=== PATIENT | male | born 1935 | race African-American/Black ===

== ENCOUNTER 2018-04-12 10:44 | Day surgery (SDC) | payer MEDICARE, OTHER ==
[~2018-04-12] VITALS: Ht 188 cm; Wt 88.8 kg
[2018-04-12] VITALS (8 sets, daily range): BP systolic 132–186; BP diastolic 58–88; PULSE 48–91; TEMP 97.8–98.3
[~2018-04-12 10:44] MED LIST: ALLERGY RELIEF25 MG; GLUCOPHAGE1000 MG PO; INDERAL40 MG PO; IRON65 M1 PO; MICARDIS40 MG PO; MOBIC15 MG PO; ONE DAILY1 TA1 PO; OSTEO-BI-FLEX 21 TAB PO; ZOCOR 40MG40 MG PO
[2018-04-12] MEDS ORDERED: LIPITOR 40MG TA40 MG PO (11:42)
[2018-04-12] MEDS ORDERED: RAPAFLO8 MG PO (11:44)
[2018-04-12] MEDS ORDERED: PLAVIX 75MG TAB75 MG PO (11:45)
[2018-04-12] MEDS ORDERED: CATAPRES-TTS 10.1 M1 TD (11:45)
[2018-04-12] MEDS ORDERED: PERCOCET 325 MG1 TA2 PO (11:46)
[2018-04-13 00:01] VITALS: BP 160/87; PULSE 66; TEMP 98.2
[2018-04-13 03:20] VITALS: BP 139/63; PULSE 55; TEMP 98.3
[2018-04-13 06:40] LABS: BASO % 0.3 % (0.0-2.0); EOS % 0.5 % (0-4.0); GRAN # 4.6 (1.4-6.5); GRAN % 71.8 % (42.2-75.2); HEMOGLOBIN 12.7 g/dl (13.5-18.0); LYMPH # 1.1 (1.2-3.4); MEAN CELL VOLUME 92 fl (80.0-100.0); MEAN CORPUSCULAR HEMOGLOBIN 32 pg (27.0-31.0); MEAN CORPUSCULAR HGB CONC 35 g/dl (33.0-37.0); MEAN PLATELET VOLUME 11.2 fl (7.4-10.4); MONO # 0.6 (0.1-0.6); MONO % 10.1 % (1.7-9.3); PLATELET COUNT 163 K/mm3 (130-400); RED BLOOD COUNT 3.99 M/mm3 (4.20-5.60); REDCELL DISTRIBUTION WIDTH-CV 13.2 % (11.5-14.5)
[2018-04-13 06:50] LABS: HEMATOCRIT 36.7 % (42.0-52.0)
[2018-04-13 07:47] VITALS: BP 146/84; PULSE 58; TEMP 98.2
== END 2018-04-13 11:52 | disposition home or self-care (01) ==
LOC: SDCO 10:44 → SURG 15:58 → SDCO 04-13 11:52
PROVIDERS: Urology
DX: N40.1 Benign prostatic hyperplasia with lower urinary tract symptoms (principal); R33.9 Retention of urine, unspecified; N13.9 Obstructive and reflux uropathy, unspecified; N31.2 Flaccid neuropathic bladder, not elsewhere classified; N21.0 Calculus in bladder; R33.8 Other retention of urine; R39.12 Poor urinary stream; N41.9 Inflammatory disease of prostate, unspecified; D56.9 Thalassemia, unspecified; Z87.442 Personal history of urinary calculi; E11.9 Type 2 diabetes mellitus without complications; Z79.84 Long term (current) use of oral hypoglycemic drugs; F17.210 Nicotine dependence, cigarettes, uncomplicated; Z79.02 Long term (current) use of antithrombotics/antiplatelets; Z79.899 Other long term (current) drug therapy; I10 Essential (primary) hypertension; I47.2 Ventricular tachycardia
CPT/HCPCS: OP; J0690; J1100; J1940; J2405; J2704; J2765; J3010; J3480; J7030

== ENCOUNTER 2018-04-21 13:02 | Day surgery (SDC) | payer MEDICARE, OTHER ==
[~2018-04-21] VITALS: Ht 188 cm; Wt 88.7 kg
[~2018-04-21 13:02] MED LIST changes: +CATAPRES-TTS 10.1 M1 TD; +LIPITOR 40MG TA40 MG PO; +PERCOCET 325 MG1 TA2 PO; +PLAVIX 75MG TAB75 MG PO; +RAPAFLO8 MG PO
[2018-04-21 14:08] VITALS: BP 171/69; PULSE 55; TEMP 97.9
[2018-04-21 18:49] VITALS: BP 145/56; PULSE 59; TEMP 97.1
[2018-04-21 19:59] VITALS: BP 145/56; PULSE 59; TEMP 97.1
[2018-04-21 20:34] VITALS: BP 157/54; PULSE 55
[2018-04-21 21:00] VITALS: BP 166/70; PULSE 62
== END 2018-04-21 21:05 | disposition home or self-care (01) ==
LOC: SDCO 13:02 → MEDICAL 18:50 → SDCO 21:05
DX: N20.1 Calculus of ureter (principal); N21.0 Calculus in bladder; E11.9 Type 2 diabetes mellitus without complications; E78.5 Hyperlipidemia, unspecified; I10 Essential (primary) hypertension; I47.1 Supraventricular tachycardia; N40.1 Benign prostatic hyperplasia with lower urinary tract symptoms; R33.8 Other retention of urine; R39.12 Poor urinary stream; F17.210 Nicotine dependence, cigarettes, uncomplicated; M19.90 Unspecified osteoarthritis, unspecified site; D64.9 Anemia, unspecified; Z90.49 Acquired absence of other specified parts of digestive tract; Z79.02 Long term (current) use of antithrombotics/antiplatelets; Z79.84 Long term (current) use of oral hypoglycemic drugs; Z85.46 Personal history of malignant neoplasm of prostate; Z82.49 Family history of ischemic heart disease and other diseases of the circulatory system
CPT/HCPCS: OP; C1769; C2617; J0690; J2405; J2704; J2765; J3010; J7030; Q9967

== ENCOUNTER 2019-06-04 12:37 | Inpatient (IN) | payer MEDICARE, OTHER ==
[2019-06-04] VITALS (259 sets, daily range): BP systolic 98–117; BP diastolic 53–77; PULSE 57–79; TEMP 97.2–99; O2SAT 61–100
[~2019-06-04] VITALS: Ht 185.4 cm; Wt 85.0 kg
[~2019-06-04 12:37] MED LIST changes: -MICARDIS40 MG PO; +MICARDIS80 MG PO
[2019-06-04] MEDS ORDERED: ASPIRIN 81M81 MG/TA2 PO (13:15)
[2019-06-04] MEDS ORDERED: LASIX 40MG TABL40 MG PO (13:15)
[2019-06-04] MEDS ORDERED: TOPROL XL 25MG25 MG PO (13:16)
[2019-06-04] MEDS ORDERED: FLOMAX 0.40.4 MG/CAP PO (13:16)
[2019-06-04] MEDS ORDERED: NITROSTAT0.4 MG/TAB SL (13:19)
[2019-06-04] MEDS ORDERED: MULTI VITAMINS1 TAB PO (13:21)
[2019-06-04] MEDS ORDERED: LEVAQUIN 2250 MG/TAB PO (13:22)
[2019-06-04 18:50] LABS: BASO % 0.2 % (0.0-2.0); EOS % 0.2 % (0-4.0); GRAN # 4.6 (1.4-6.5); HEMOGLOBIN 10.2 g/dl (13.5-18.0); LYMPH # 0.3 (1.2-3.4); LYMPH % 5.1 % (20.0-51.0); MEAN CELL VOLUME 95 fl (80.0-100.0); MEAN CORPUSCULAR HEMOGLOBIN 31 pg (27.0-31.0); MEAN CORPUSCULAR HGB CONC 33 g/dl (33.0-37.0); MEAN PLATELET VOLUME 11.7 fl (7.4-10.4); MONO # 0.3 (0.1-0.6); MONO % 4.9 % (1.7-9.3); PLATELET COUNT 120 K/mm3 (130-400); RED BLOOD COUNT 3.29 M/mm3 (4.20-5.60); REDCELL DISTRIBUTION WIDTH-CV 13.8 % (11.5-14.5)
[2019-06-04 18:51] LABS: HEMATOCRIT 31.4 % (42.0-52.0)
[2019-06-04 19:01] LABS: ALBUMIN 3.4 gm/dL (3.5-5.0); BILIRUBIN,TOTAL 0.6 mg/dL (0.0-1.0); CALCIUM 8.5 mg/dL (8.4-10.2); CREATININE, serum 1.19 (0.66-1.25); MAGNESIUM 2.1 mg/dL (1.6-2.3); POTASSIUM 3.9 mmol/L (3.4-5.0); TOTAL PROTEIN 6.5 gm/dL (6.4-8.2)
[2019-06-04 20:46] LABS: TROPONIN-I 0.037 ng/mL (0.000-0.035)
[2019-06-05] VITALS (355 sets, daily range): BP systolic 105–132; BP diastolic 51–71; PULSE 43–57; TEMP 97–98.2; O2SAT 69–100
[2019-06-05 05:43] LABS: BASO % 0.2 % (0.0-2.0); GRAN # 3.6 (1.4-6.5); GRAN % 85.8 % (42.2-75.2); LYMPH # 0.3 (1.2-3.4); LYMPH % 6.9 % (20.0-51.0); MEAN CELL VOLUME 95 fl (80.0-100.0); MEAN CORPUSCULAR HGB CONC 32 g/dl (33.0-37.0); MEAN PLATELET VOLUME 12.1 fl (7.4-10.4); MONO # 0.3 (0.1-0.6); MONO % 6.4 % (1.7-9.3); PLATELET COUNT 126 K/mm3 (130-400); RED BLOOD COUNT 3.07 M/mm3 (4.20-5.60); REDCELL DISTRIBUTION WIDTH-CV 13.8 % (11.5-14.5)
[2019-06-05 05:44] LABS: HEMATOCRIT 29.3 % (42.0-52.0); HEMOGLOBIN 9.5 g/dl (13.5-18.0); MEAN CORPUSCULAR HEMOGLOBIN 31 pg (27.0-31.0)
[2019-06-05 06:00] LABS: CALCIUM 8.3 mg/dL (8.4-10.2); CREATININE, serum 1.07 (0.66-1.25); POTASSIUM 4.3 mmol/L (3.4-5.0)
[2019-06-05 06:08] LABS: TROPONIN-I 0.02 ng/mL (0.000-0.035)
[2019-06-06] VITALS (14 sets, daily range): BP systolic 109–137; BP diastolic 42–69; PULSE 36–80; TEMP 97.6–98.4
[2019-06-06 07:12] LABS: BASO % 0.2 % (0.0-2.0); EOS # 0.1 (0.0-0.7); GRAN # 3.8 (1.4-6.5); GRAN % 73.9 % (42.2-75.2); LYMPH # 0.7 (1.2-3.4); LYMPH % 12.6 % (20.0-51.0); MEAN CELL VOLUME 96 fl (80.0-100.0); MEAN CORPUSCULAR HGB CONC 33 g/dl (33.0-37.0); MEAN PLATELET VOLUME 11.9 fl (7.4-10.4); MONO # 0.6 (0.1-0.6); MONO % 11.5 % (1.7-9.3); PLATELET COUNT 152 K/mm3 (130-400); RED BLOOD COUNT 3.08 M/mm3 (4.20-5.60); REDCELL DISTRIBUTION WIDTH-CV 13.7 % (11.5-14.5)
[2019-06-06 07:13] LABS: HEMATOCRIT 29.4 % (42.0-52.0); HEMOGLOBIN 9.7 g/dl (13.5-18.0); MEAN CORPUSCULAR HEMOGLOBIN 31 pg (27.0-31.0)
[2019-06-06 07:25] LABS: CALCIUM 8.7 mg/dL (8.4-10.2); CREATININE, serum 0.99 (0.66-1.25); POTASSIUM 3.9 mmol/L (3.4-5.0)
[2019-06-07 04:00] VITALS: BP 148/51; PULSE 42; TEMP 97.7
[2019-06-07 07:39] VITALS: BP 141/66; PULSE 49; TEMP 98.2
[2019-06-07 08:59] LABS: GRAN # 3.7 (1.4-6.5); GRAN % 73.9 % (42.2-75.2); HEMOGLOBIN 10.4 g/dl (13.5-18.0); LYMPH # 0.7 (1.2-3.4); MEAN CELL VOLUME 94 fl (80.0-100.0); MEAN CORPUSCULAR HEMOGLOBIN 32 pg (27.0-31.0); MEAN CORPUSCULAR HGB CONC 34 g/dl (33.0-37.0); MEAN PLATELET VOLUME 11.1 fl (7.4-10.4); MONO # 0.6 (0.1-0.6); MONO % 12.3 % (1.7-9.3); PLATELET COUNT 148 K/mm3 (130-400); REDCELL DISTRIBUTION WIDTH-CV 13.7 % (11.5-14.5)
[2019-06-07 09:13] LABS: CALCIUM 8.8 mg/dL (8.4-10.2); CREATININE, serum 0.96 (0.66-1.25); POTASSIUM 4.1 mmol/L (3.4-5.0)
[2019-06-07] MEDS ORDERED: MICARDIS20 MG PO (10:08)
[2019-06-07 11:49] VITALS: BP 116/47; PULSE 46; TEMP 97.8
== END 2019-06-07 13:08 | disposition home or self-care (01) | DRG 660 ==
LOC: SDCO 12:37 → ICU 18:04 → SDCO 06-05 01:11 → ICU 06-05 01:12 → SURG 06-05 01:12
PROVIDERS: Nurse Practitioner Family; Physician Assistant; ADMIT Urology
PROC: BT1FYZZ Fluoroscopy of Left Kidney, Ureter and Bladder using Other Contrast (ICD-10-PCS; 2019-06-04)
PROC: 0TJB8ZZ Inspection of Bladder, Via Natural or Artificial Opening Endoscopic (ICD-10-PCS; principal; 2019-06-04 14:30)
PROC: 0T778DZ Dilation of Left Ureter with Intraluminal Device, Via Natural or Artificial Opening Endoscopic (ICD-10-PCS; 2019-06-06 17:30)
PROC: 0TC78ZZ Extirpation of Matter from Left Ureter, Via Natural or Artificial Opening Endoscopic (ICD-10-PCS; 2019-06-06 17:30)
DX: N13.6 Pyonephrosis (principal); E87.2 Acidosis; I47.1 Supraventricular tachycardia; N17.9 Acute kidney failure, unspecified; E78.5 Hyperlipidemia, unspecified; I10 Essential (primary) hypertension; I25.10 Atherosclerotic heart disease of native coronary artery without angina pectoris; D56.9 Thalassemia, unspecified; N40.0 Benign prostatic hyperplasia without lower urinary tract symptoms; R00.1 Bradycardia, unspecified; Z85.46 Personal history of malignant neoplasm of prostate; Z87.891 Personal history of nicotine dependence; Z79.84 Long term (current) use of oral hypoglycemic drugs
CPT/HCPCS: OP; 99222; 99231-AI; 99232-AI; C1729; C1769; C2617; G0378; G0379; J0690; J1100; J1815; J2405; J2704; J3010; J7030; Q9967

== ENCOUNTER 2019-06-12 15:40 | Inpatient (IN) | payer MEDICARE, OTHER ==
[~2019-06-12] VITALS: Ht 185.4 cm; Wt 195.0 kg
[~2019-06-12 15:40] MED LIST changes: +ASPIRIN 81M81 MG/TA2 PO; +FLOMAX 0.40.4 MG/CAP PO; +LASIX 40MG TABL40 MG PO; +LEVAQUIN 2250 MG/TAB PO; +MICARDIS20 MG PO; +MULTI VITAMINS1 TAB PO; +NITROSTAT0.4 MG/TAB SL; +TOPROL XL 25MG25 MG PO
--- NOTE | 2019-06-12 17:30 | NUR ---
arrived per stretcher via EMS from [facility], assisted over and into bed, MANAGER COLLECTION in and blood sugar obtained, blood sugar is 51
[2019-06-12 17:32] VITALS: BP 129/61; PULSE 63; TEMP 98.3
--- NOTE | 2019-06-12 17:40 | NUR ---
Dr Shah notified of patinet's admission and blood sugar, order received for IV fluids and D5NS started
--- NOTE | 2019-06-12 17:52 | NUR ---
Dr Miller here and notified of consult and in to see patient
[2019-06-12 18:33] LABS: COLLECTION METHOD CATHETER
[2019-06-12 18:56] LABS: BUDDING YEAST Present /hpf; MUCOUS Present /lpf; PH 5 (5-8); SQUAMOUS EPITHELIAL 0-2 /hpf; URINE APPEARANCE Cloudy; URINE BACTERIA Moderate /hpf; URINE BILIRUBIN Negative (NEGATIVE); URINE BLOOD 3+ (NEGATIVE); URINE CALCIUM OXALATE CRYSTAL Present /hpf; URINE COLOR Amber; URINE GLUCOSE Negative (NEGATIVE); URINE KETONE Negative (NEGATIVE); URINE LEUKOCYTE ESTERASE 1+ (NEGATIVE); URINE NITRATE Negative (NEGATIVE); URINE PROTEIN(semi-quant) 2+ (NEGATIVE); URINE RBC >50 /hpf; URINE UROBILINOGEN Negative (NEGATIVE)
--- NOTE | 2019-06-12 19:01 | NUR ---
bedside shift report given to RUTH ANN Hurd
[2019-06-12 19:20] LABS: BASO % 0.1 % (0.0-2.0); EOS % 0.5 % (0-4.0); GRAN # 6.9 (1.4-6.5); GRAN % 82.9 % (42.2-75.2); LYMPH # 0.7 (1.2-3.4); LYMPH % 8.5 % (20.0-51.0); MEAN CELL VOLUME 96 fl (80.0-100.0); MEAN CORPUSCULAR HGB CONC 32 g/dl (33.0-37.0); MEAN PLATELET VOLUME 10.3 fl (7.4-10.4); MONO # 0.6 (0.1-0.6); MONO % 7.2 % (1.7-9.3); PLATELET COUNT 265 K/mm3 (130-400); RED BLOOD COUNT 3.17 M/mm3 (4.20-5.60); REDCELL DISTRIBUTION WIDTH-CV 14.2 % (11.5-14.5)
[2019-06-12 19:21] LABS: HEMATOCRIT 30.3 % (42.0-52.0); HEMOGLOBIN 9.8 g/dl (13.5-18.0); MEAN CORPUSCULAR HEMOGLOBIN 31 pg (27.0-31.0)
--- NOTE | 2019-06-12 19:25 | NUR ---
attempted to complete medication reconcilliation, he is unsure of his medicine and his has a list, I reported this to RUTH ANN Hurd
[2019-06-12 19:27] LABS: ALBUMIN 3.9 gm/dL (3.5-5.0); BILIRUBIN,TOTAL 0.6 mg/dL (0.0-1.0); CALCIUM 9.3 mg/dL (8.4-10.2); MAGNESIUM 2.3 mg/dL (1.6-2.3); PHOSPHOROUS 5.1 mg/dL (2.5-4.5); POTASSIUM 5.1 mmol/L (3.4-5.0); TOTAL PROTEIN 6.9 gm/dL (6.4-8.2)
[2019-06-12 19:30] LABS: CREATININE, serum 6.57 (0.66-1.25)
[2019-06-12] MEDS ORDERED: MICARDIS40 MG PO (19:37)
--- NOTE | 2019-06-12 19:38 | NUR ---
spoke with and med dean completed
[2019-06-12 19:39] VITALS: BP 122/49; PULSE 82; TEMP 97.5
--- NOTE | 2019-06-12 22:38 | NUR ---
Pt doing ok. Resting in room. IV bolus running with IV to right hand. Denies pain at this time. BS have come up some. Has not had BM this shift. Denies needs at this time. Call light within reach, will continue to monitor
[2019-06-12 23:26] VITALS: BP 119/48; PULSE 71; TEMP 97.8
[2019-06-13 04:00] VITALS: BP 114/51; PULSE 60; TEMP 98.1
--- NOTE | 2019-06-13 05:03 | NUR ---
Pt doing ok. Resting in bed. Denies pain, n/v at this time. Did have small BM around 0300. Brown, soft formed. No other concerns at this time. Call light within reach, will continue to monitor
[2019-06-13 07:14] VITALS: BP 124/71; PULSE 49; TEMP 97.7
--- NOTE | 2019-06-13 08:00 | NUR ---
SEE MORNING ASSESSMENT.
--- NOTE | 2019-06-13 08:00 | NUR ---
contacted to obtain lab sample. Attempted twice in left arm. Number 24 butterfly left forearm with no blood return. Butterfly needle used and accessed left hand vein without difficulty lab drawn. Butterfly needle removed. Both sites were cleansed with alcohol prior to each attempt.
[2019-06-13 08:20] LABS: EOS # 0.1 (0.0-0.7); EOS % 1.2 % (0-4.0); GRAN # 5.2 (1.4-6.5); GRAN % 80.6 % (42.2-75.2); LYMPH # 0.6 (1.2-3.4); LYMPH % 9.8 % (20.0-51.0); MEAN CELL VOLUME 95 fl (80.0-100.0); MEAN CORPUSCULAR HGB CONC 33 g/dl (33.0-37.0); MEAN PLATELET VOLUME 9.8 fl (7.4-10.4); MONO # 0.5 (0.1-0.6); MONO % 7.5 % (1.7-9.3); PLATELET COUNT 231 K/mm3 (130-400); REDCELL DISTRIBUTION WIDTH-CV 14.4 % (11.5-14.5)
[2019-06-13 08:21] LABS: HEMATOCRIT 26.7 % (42.0-52.0); HEMOGLOBIN 8.8 g/dl (13.5-18.0); MEAN CORPUSCULAR HEMOGLOBIN 31 pg (27.0-31.0)
[2019-06-13 08:31] LABS: CALCIUM 8.3 mg/dL (8.4-10.2); POTASSIUM 4.9 mmol/L (3.4-5.0)
[2019-06-13 08:36] LABS: CREATININE, serum 5.53 (0.66-1.25)
--- NOTE | 2019-06-13 10:49 | NUR ---
Follow-up visit; Patient thanked Nozzle Worker for checking on him. Raul states he isn't doing well but is being well cared for by nurses. Nozzle Worker wished him well and offered God's blessings.
[2019-06-13 11:42] VITALS: BP 132/49; PULSE 63; TEMP 98.4
--- NOTE | 2019-06-13 16:12 | NUR ---
Market Manager met with patient and patient's Genna (ph#[phone]) to discuss discharge planning. Patient lives with his in [place] and is mostly independent with ADLS however, patient's does provide some assistance. Patient reports his assists him with bathing. Patient receives primary care from Dr. Andre Barnes in [place] and obtains medications from [place] with no issue. Patient has a cane that he utilizes regularly. Patient's reports Advance Directives have been completed but are at home in a safe. Patient was recently hospitalized on 06/04/19 and was discharged on 06/07/19. Patient's reports they returned to the ER as patient was unable to urinate. SW discussed PT's evaluation in regards to outpatient PT or possibly Home Health. Patient declines HH and reports he has no trouble getting out of his house to his truck, which he enjoys driving around in. Patient was open to outpatient PT. Patient does not have concerns at this time about returning home upon discharge. SW to continue to follow as needed.
[2019-06-13 16:13] VITALS: BP 145/61; PULSE 60; TEMP 97.9
--- NOTE | 2019-06-13 16:23 | NUR ---
PATIENT STATES THAT HIS BUTT HURTS. COCCYX REDDENED. BARRIER CREAM APPLIED. WILL CONTINUE TO MONITOR.
--- NOTE | 2019-06-13 19:12 | NUR ---
REPORT GIVEN TO RUTH ANN WALDROP.
[2019-06-13 20:50] VITALS: BP 131/59; PULSE 60; TEMP 98.6
--- NOTE | 2019-06-13 21:52 | NUR ---
Pt doing well. Resting in bed with fluids running. Denies SOB, chest pain, n/v. Has no other complaints. Call light within reach, will continue to monitor
[2019-06-13 23:09] VITALS: BP 154/62; PULSE 71; TEMP 97.8
[2019-06-14 04:00] VITALS: BP 143/53; PULSE 65; TEMP 97.6
--- NOTE | 2019-06-14 05:32 | NUR ---
Patient refused AM labs this morning. Not able to obtain fractionated sodium
--- NOTE | 2019-06-14 06:55 | NUR ---
awake up in chair watching TV, bedside shift report received from RUTH ANN Catalan
[2019-06-14 07:32] VITALS: BP 140/73; PULSE 53; TEMP 97.4
--- NOTE | 2019-06-14 08:00 | NUR ---
remains up in chair, stated he didn't want any breakfast that he wasn't hungry, asking when the Dr is coming in because he wants to go home, informed him it would be after 0830 at the earliest, full assessment completed, see interventions for further info, abrbour cath patent draining clear christopher urine
--- NOTE | 2019-06-14 09:38 | NUR ---
Dr Shah and care team in to see patient, has agreed now to have lab work done, barbour catheter clamped in order to obtain urine specimen
--- NOTE | 2019-06-14 10:09 | NUR ---
lab in and blood drawn by this nurse and urine for FENA,
--- NOTE | 2019-06-14 10:10 | NUR ---
Resaw Operator attended clinical rounds with the team where treatment and discharge goals were reviewed. SW to continue to follow as needed.
[2019-06-14 10:19] LABS: BASO % 0.2 % (0.0-2.0); EOS # 0.2 (0.0-0.7); EOS % 2.4 % (0-4.0); GRAN # 4.7 (1.4-6.5); GRAN % 75.4 % (42.2-75.2); LYMPH # 0.7 (1.2-3.4); LYMPH % 11.6 % (20.0-51.0); MEAN CELL VOLUME 95 fl (80.0-100.0); MEAN CORPUSCULAR HGB CONC 33 g/dl (33.0-37.0); MONO # 0.6 (0.1-0.6); MONO % 9.3 % (1.7-9.3); PLATELET COUNT 242 K/mm3 (130-400); RED BLOOD COUNT 3.04 M/mm3 (4.20-5.60); REDCELL DISTRIBUTION WIDTH-CV 14.3 % (11.5-14.5)
[2019-06-14 10:20] LABS: HEMATOCRIT 28.9 % (42.0-52.0); HEMOGLOBIN 9.6 g/dl (13.5-18.0); MEAN CORPUSCULAR HEMOGLOBIN 32 pg (27.0-31.0)
[2019-06-14 10:38] LABS: ALBUMIN 3.3 gm/dL (3.5-5.0); BILIRUBIN,TOTAL 0.6 mg/dL (0.0-1.0); CALCIUM 8.5 mg/dL (8.4-10.2); CREATININE, serum 3.37 (0.66-1.25); MAGNESIUM 1.9 mg/dL (1.6-2.3); POTASSIUM 4.5 mmol/L (3.4-5.0); TOTAL PROTEIN 6.1 gm/dL (6.4-8.2)
[2019-06-14 10:41] LABS: CREATININE, serum 3.37 (0.66-1.25); FRACTIONAL EXCRETION OF NA+ 4.8 %
[2019-06-14 11:14] VITALS: BP 165/55; PULSE 55; TEMP 97.3
--- NOTE | 2019-06-14 12:18 | NUR ---
sitting up in chair eating lunch, informed him the lab results were back and the Dr was informed
--- NOTE | 2019-06-14 15:18 | NUR ---
Dr Shah in to see patietn and will plan discharge
[2019-06-14] MEDS ORDERED: DIFLUCAN50 MG PO (15:23)
[2019-06-14] MEDS ORDERED: OMNICEF 300MG300 MG PO (15:24)
[2019-06-14] MEDS ORDERED: NICODERM C21 MG/PATC TD (15:26)
[2019-06-14] MEDS ORDERED: NORVASC 5MG5 MG/TAB PO (15:26)
--- NOTE | 2019-06-14 16:50 | NUR ---
discharge instructions given to patient and his and this included how to change the catheter bag to a leg bag and back, verbalizes understanding and his states they have done this before,
--- NOTE | 2019-06-14 17:00 | NUR ---
discharged per WC
== END 2019-06-14 17:00 | disposition home or self-care (01) | DRG 683 ==
LOC: MEDICAL 15:40 → SURG 17:35
PROVIDERS: Nurse Practitioner Family; Physician Assistant; ADMIT Internal Medicine
DX: N17.9 Acute kidney failure, unspecified (principal); N39.0 Urinary tract infection, site not specified; G93.49 Other encephalopathy; I13.0 Hypertensive heart and chronic kidney disease with heart failure and stage 1 through stage 4 chronic kidney disease, or unspecified chronic kidney disease; E78.5 Hyperlipidemia, unspecified; I25.10 Atherosclerotic heart disease of native coronary artery without angina pectoris; K57.30 Diverticulosis of large intestine without perforation or abscess without bleeding; F17.210 Nicotine dependence, cigarettes, uncomplicated; I50.9 Heart failure, unspecified; R33.8 Other retention of urine; D56.9 Thalassemia, unspecified; N40.1 Benign prostatic hyperplasia with lower urinary tract symptoms; N18.3 Chronic kidney disease, stage 3 (moderate); E11.22 Type 2 diabetes mellitus with diabetic chronic kidney disease; Z85.46 Personal history of malignant neoplasm of prostate; Z90.49 Acquired absence of other specified parts of digestive tract; Z79.82 Long term (current) use of aspirin; Z79.02 Long term (current) use of antithrombotics/antiplatelets; Z79.84 Long term (current) use of oral hypoglycemic drugs
CPT/HCPCS: 99223-AI; 99239; A4216; J0696; J1644; J7030; J7042

== ENCOUNTER 2020-01-25 07:16 | Day surgery (SDC) | payer MEDICARE, OTHER ==
[2020-01-25] VITALS (8 sets, daily range): BP systolic 133–160; BP diastolic 50–66; PULSE 46–89; TEMP 98–98.1
[~2020-01-25] VITALS: Ht 185.4 cm; Wt 92.2 kg
[~2020-01-25 07:16] MED LIST changes: +DIFLUCAN50 MG PO; +MICARDIS40 MG PO; +NICODERM C21 MG/PATC TD; +NORVASC 5MG5 MG/TAB PO; +OMNICEF 300MG300 MG PO
[2020-01-25] MEDS ORDERED: BACTRIM DS 8001 TAB PO (08:31)
--- NOTE | 2020-01-25 09:00 | NUR ---
Resting on cart and awaits surgery. Spouse in room.
[2020-01-25] MEDS ORDERED: NITROSTAT0.4 MG/TAB SL (09:03)
[2020-01-25 09:36] LABS: CALCIUM 9.4 mg/dL (8.4-10.2); CREATININE, serum 1.38 (0.66-1.25); POTASSIUM 4.6 mmol/L (3.4-5.0)
--- NOTE | 2020-01-25 10:00 | NUR ---
Continues to await surgery. Warm blankets on.
--- NOTE | 2020-01-25 11:30 | NUR ---
Informed that the surgery will be delayed and continues to wait. Warm blankets on.
--- NOTE | 2020-01-25 12:00 | NUR ---
Continues to await surgery. Was informed that surgery has been delayed until approximately 1530. Spouse in room.
--- NOTE | 2020-01-25 13:15 | NUR ---
Patient transferred from cart to hospital bed for comfort. Patient transferred to PACU isolation bay and report given to Vannessa VALLECILLO. Spouse with patient and all belongings transferred with patient.
--- NOTE | 2020-01-25 18:20 | NUR ---
Patient to room 343 by bed from the PACU, at the bedside. Patient is alert, but drowsy and falls back to sleep. Is easily aroused. VSS 2L NC O2. IV CDI, fluids infusing. CBI infusing, pink urine output. Post op VS being monitored. Fall precautions in place. Call light within reach. Bed alarm on. Will continue to monitor
[2020-01-26 03:45] VITALS: BP 150/57; PULSE 49; TEMP 97.6
--- NOTE | 2020-01-26 04:17 | NUR ---
Patient noted to be confused about where he as at the beginning of the shift. Patient educated about his surgery and that he was in the hospital, patient able to be reoriented. Oxygen saturations noted to be low and 2L NC was reapplied. Patient educated to leave oxygen on. CBI running slowly and urine is light pink in color. Denies pain. Medications given per orders. Patient tolerating PO water fine and has not requested any other clear liquids. IV to right hand. SCDs on. Will conitnue to monitor patient.
[2020-01-26 08:45] VITALS: BP 155/65; PULSE 51; TEMP 97.7
[2020-01-26 12:11] VITALS: BP 132/59; PULSE 50; TEMP 97.9
--- NOTE | 2020-01-26 13:49 | NUR ---
Photoengraving Proofer Apprentice visited with patient and nothing else needed.
[2020-01-26 16:46] VITALS: BP 153/65; PULSE 51; TEMP 98.1
--- NOTE | 2020-01-26 18:00 | NUR ---
Patient has been doing well today. No complaints of pain or nausea. His came earlier and stated that patient is diabetic. We checked his blood glucose before supper, it was 70. Clamped patients CBI this morning, his urine has a few old clots but no bright red blood. Patient is hoping to discharge tomorrow. No other changes at this time. Call light within reach.
--- NOTE | 2020-01-26 20:00 | NUR ---
Received report from RUTH ANN Morris. Pt currently lying in bed and watching television at this time. Pt has his call light within reach at this time.
[2020-01-26 20:14] VITALS: BP 123/56; PULSE 58; TEMP 98.4
[2020-01-26 22:53] VITALS: BP 161/63; PULSE 54; TEMP 98
--- NOTE | 2020-01-26 23:00 | NUR ---
Pt currently sitting up in bed. Pt lungs sounds were clear and heart sounds were normal S1 and S2 sounds. Pt CBI is currently clamped. Pt stated that his has no pain at this time. Cath care was provided at this time and ointment was applied at this time. Pt has his call light within reach and his bed is lowest position.
--- NOTE | 2020-01-27 00:30 | NUR ---
Pt currentlty sleeping in bed. Pt did wake up when asked how he was doing. pt has his call light within reach and his bed is in lowest position.
[2020-01-27 04:04] VITALS: BP 151/63; PULSE 55; TEMP 98.6
--- NOTE | 2020-01-27 06:35 | NUR ---
PT CBI was discontinued this moring. Pt balloon was intact with 30cc from balloon. Pt tolerated well. Pt was cleaned up and bottom linens were changed. Pt was educated on the 6 cup routine and has a urinal at his bedside in case he doesn't make it to the bathroom. Pt cups are labled and on the shelf in the bathroom. He has his call light within reach and his bed is in lowest position.
--- NOTE | 2020-01-27 07:00 | NUR ---
Reported off to RUTH ANN Morris. Pt is currently sitting up in bed and has his call light within reach.
[2020-01-27 08:08] VITALS: BP 151/67; PULSE 97; TEMP 98.3
--- NOTE | 2020-01-27 11:45 | NUR ---
Patient has been voiding without issues. Denies pain or burning with urination. Patient is discharging home. Dr Rowe seen patient and said he could go. Discharge instructions discussed with patient. INT discontinued. Copies of discharge instructions givent to patient. Explained he needs to call for a follow up with Dr Rowe. Patient packed his own belongings. Patient walked out via wheel chair by Xiomara BORGES.
== END 2020-01-27 12:00 | disposition home or self-care (01) ==
LOC: SDCO 07:16 → SURG 18:32 → SDCO 01-27 12:00
PROVIDERS: Nurse Anesthetist, Certified Registered
DX: C61 Malignant neoplasm of prostate (principal); N40.1 Benign prostatic hyperplasia with lower urinary tract symptoms; N13.8 Other obstructive and reflux uropathy; R33.8 Other retention of urine; N31.2 Flaccid neuropathic bladder, not elsewhere classified; I47.2 Ventricular tachycardia; I10 Essential (primary) hypertension; E11.9 Type 2 diabetes mellitus without complications; J44.9 Chronic obstructive pulmonary disease, unspecified; E78.5 Hyperlipidemia, unspecified; I35.1 Nonrheumatic aortic (valve) insufficiency; R25.1 Tremor, unspecified; Z79.82 Long term (current) use of aspirin; Z79.899 Other long term (current) drug therapy; Z87.891 Personal history of nicotine dependence
CPT/HCPCS: OP; J0690; J2250; J2405; J2704; J3010; J3480; J7030

== ENCOUNTER 2020-02-15 07:40 | Inpatient (IN) | payer MEDICARE, OTHER ==
[2020-02-15] VITALS (15 sets, daily range): BP systolic 113–144; BP diastolic 46–80; PULSE 57–92; TEMP 73–98.7
[~2020-02-15 07:40] MED LIST changes: +BACTRIM DS 8001 TAB PO
[2020-02-15] MEDS ORDERED: XARELTO15 MG PO (09:52)
--- NOTE | 2020-02-15 10:30 | NUR ---
Pt arrived to floor at approxiamtely 0930, oriented to room. Medications confirmed with over phone. pt consented. Assisted melo in exchanging barbour to [address] and he tried to irrigate clots but was unsuccessful, pt prepped for OR immediately and taken down. Pt agreeable, alert and oriented. Transported down by Dylon,to OR. Will continue to monitor.
--- NOTE | 2020-02-15 13:44 | NUR ---
Pt returend to floor from OR at this time, resting in bed, slightly disoriented from anesthesia but resting quietly. Urine draining is clear wiht CBI at slow rate. Will continue to monitor.
[2020-02-15 14:59] LABS: EOS % 0.2 % (0-4.0); GRAN % 85.8 % (42.2-75.2); LYMPH # 0.5 (1.2-3.4); MEAN CELL VOLUME 86 fl (80.0-100.0); MEAN CORPUSCULAR HGB CONC 31 g/dl (33.0-37.0); MEAN PLATELET VOLUME 11.5 fl (7.4-10.4); MONO # 0.2 (0.1-0.6); MONO % 3.4 % (1.7-9.3); PLATELET COUNT 170 K/mm3 (130-400); RED BLOOD COUNT 2.35 M/mm3 (4.20-5.60); REDCELL DISTRIBUTION WIDTH-CV 15.9 % (11.5-14.5)
[2020-02-15 15:00] LABS: MEAN CORPUSCULAR HEMOGLOBIN 26 pg (27.0-31.0)
[2020-02-15 15:01] LABS: HEMATOCRIT 20.1 % (42.0-52.0); HEMOGLOBIN 6.2 g/dl (13.5-18.0); INR 1.7 (0.8-3.0)
[2020-02-15 15:09] LABS: CALCIUM 8.8 mg/dL (8.4-10.2); CREATININE, serum 1.49 (0.66-1.25); POTASSIUM 4.9 mmol/L (3.4-5.0)
[2020-02-15 15:57] LABS: PARTIAL THROMBOPLASTIN TIME 32.2 SECONDS (26.0-37.0)
--- NOTE | 2020-02-15 18:31 | NUR ---
Pt doing well, 1U PRBCs started, pt tolerated well, educated on s/sx of a transfusion reaction pt denies any symptoms, doing well, resting in bed. CBI at very slow rate and pt urine remains yellow and clear. PRBCs infusing to LH. Will give bedside shift report to nightshift nurse who will resume care.
--- NOTE | 2020-02-15 18:55 | NUR ---
Recevied report from RUTH ANN Dsouza. Pt currently sitting up in bed. Pt has blood infusing at this time. Pt has no complaints of pain at this time. Pt also has clear yellow urine draining in his barbour bag. Pt currently has CBI running at this time. Pt has his call light within reach and his bed is in lowest position.
--- NOTE | 2020-02-15 20:55 | NUR ---
Pt is currently lying in bed. Lab was drawn and resulted for heparin xa and the levels were 0.70. DANY Tillman was contacted at this time. She resumed the ordered for the heparin drip at this time.
--- NOTE | 2020-02-15 21:00 | NUR ---
Pt is currently lying in bed. Pt blood was done infusing at 2100. Pt vitals are within normal limits. Pt has no complaints of pain at this time. Pt has his call light within reach.
--- NOTE | 2020-02-15 22:00 | NUR ---
Pt had his H&H drawn at this time. Pt hemoglobin level was at 6.9. Vannessa SAENZ was contacted at this time. She ordered for him to have another unit of blood at this time. Pt was infomed about all of the changes and educated on what all of this meant for him. Pt CBI still has yellow clear urine draining at this time. Pt has his call light within reach and his bed is in lowest position.
[2020-02-15 22:28] LABS: HEMATOCRIT 21.8 % (42.0-52.0); HEMOGLOBIN 6.9 g/dl (13.5-18.0)
[2020-02-16] VITALS (12 sets, daily range): BP systolic 119–158; BP diastolic 46–87; PULSE 51–64; TEMP 97.5–99.2
--- NOTE | 2020-02-16 | NUR ---
Pt heparin drip was started at 2354 infusing at a rate of 16.5ml/hr. Pt had a new IV site placed @ 2140 but RUTH ANN Nuñez. Medication was verified by RUTH ANN De La Cruz. Pt has his call light within reach.
--- NOTE | 2020-02-16 01:20 | NUR ---
Pt blood was started at this time. Pt tolerated the blood very well for the first 15 minutes. Pt had no reactions. Pt is currently resting in bed. Pt has the heparin running to his right forarm. Pt has the blood infusing in his left forearm. Pt CBI is flowing clear yellow urine at this time. Pt stated he has no pain at this time. Pt vitals are all within normal limits.
--- NOTE | 2020-02-16 01:25 | NUR ---
Pt CBI is currently running. Pt urine did turn to a red tinged.The CBI was turned down at this time and the urine began to lighten up . Pt has his call light within reach and his bed is in lowest position. Will continue to monitor for bleeding.
--- NOTE | 2020-02-16 05:00 | NUR ---
Pt tolerated the blood transfusion very well. Pt has vitals were all charted at the right time. Pt still has heparin runnin at 16.5 ml/hr. Pt vitals are all within normal limits. Pt blood was finished at 0455 and has no complaints of pain at this time.
--- NOTE | 2020-02-16 06:14 | NUR ---
Pt currently lying in bed sleeping. Pt vitals are still within normal limits at this time.
--- NOTE | 2020-02-16 07:00 | NUR ---
Reported off to RUTH ANN Reyna. Pt currently sitting up in bed. Pt was asked if he wanted his breakfast tray and the pt stated that it was to early and he didn't want his breakfast right now.
--- NOTE | 2020-02-16 07:00 | NUR ---
LAB CALLED AT THIS TIME, HEP XA DUE AT 0600, NO DRAW OR RESULTS AT THIS TIME.
[2020-02-16 07:31] LABS: BASO % 0.4 % (0.0-2.0); EOS % 0.3 % (0-4.0); GRAN # 5.1 (1.4-6.5); LYMPH # 0.9 (1.2-3.4); LYMPH % 13.3 % (20.0-51.0); MEAN CELL VOLUME 86 fl (80.0-100.0); MEAN CORPUSCULAR HGB CONC 32 g/dl (33.0-37.0); MEAN PLATELET VOLUME 11.6 fl (7.4-10.4); MONO # 0.8 (0.1-0.6); MONO % 11.7 % (1.7-9.3); PLATELET COUNT 157 K/mm3 (130-400); RED BLOOD COUNT 2.65 M/mm3 (4.20-5.60); REDCELL DISTRIBUTION WIDTH-CV 15.6 % (11.5-14.5)
--- NOTE | 2020-02-16 07:34 | NUR ---
HEP XA RESULTED AT 0730. HEP XA 1.17. HEPARIN GTT STOPPED, REDRAW IN TWO HOURS
[2020-02-16 07:40] LABS: CALCIUM 8.3 mg/dL (8.4-10.2); CREATININE, serum 1.47 (0.66-1.25); POTASSIUM 4.5 mmol/L (3.4-5.0)
[2020-02-16 07:42] LABS: HEMATOCRIT 22.7 % (42.0-52.0); HEMOGLOBIN 7.3 g/dl (13.5-18.0); MEAN CORPUSCULAR HEMOGLOBIN 28 pg (27.0-31.0)
--- NOTE | 2020-02-16 11:23 | NUR ---
Patient alert and oriented, answers questions appropriately. See assessment. CBI infusing at slow rate, urine clear. Farr catheter patent. Pulses palpable BLE. Homans negative. No c/o at this time.
--- NOTE | 2020-02-16 12:18 | NUR ---
Dr Miller here to see patient.
--- NOTE | 2020-02-16 21:00 | NUR ---
PT IN BED, IS ALERT AND ORIENTED X4, ALTURAS. HAS HEPARIN GTT INFUSING AT 1200 UNITS PER HOUR OR 12CC/HR TO RIGHT FOREARM. HAS SL TO LEFT HAND FLUSHES WELL. CAVANAUGH CATH TO BSD WITH YELLOW URINE, CBI CLAMPED AT THIS TIME. HAS EDEMA TO LEFT LOWER LEG, PT REPORTS IT IS MUCH IMPROVED THAN ON ADMISSION, STILL 1+ PITTING. DENIES PAIN. TAKES NO HS MEDS. DENIES NEEDS.
[2020-02-17] VITALS (7 sets, daily range): BP systolic 131–150; BP diastolic 55–67; PULSE 56–666; TEMP 98–99.7
--- NOTE | 2020-02-17 04:26 | NUR ---
RESULTS FROM HEP XA=0.58, NO CHANGES NEEDED.
--- NOTE | 2020-02-17 05:26 | NUR ---
IVF CONNECTED AND INFUSING TO LEFT HAND WITHOUT PROBLEM. PT DENIES NEEDS. URINE REMAINS YELLOW WITH CBI CLAMPED.
--- NOTE | 2020-02-17 07:16 | NUR ---
Lying in bed with eyes open. Denies pain. Farr to dependent drainage draining clear yellow urine. No CBI infusing at this time. Patient denies any additional needs at this time.
[2020-02-17 09:18] LABS: BASO % 0.5 % (0.0-2.0); EOS # 0.3 (0.0-0.7); EOS % 4.7 % (0-4.0); GRAN # 4.8 (1.4-6.5); GRAN % 71.8 % (42.2-75.2); LYMPH # 0.8 (1.2-3.4); LYMPH % 12.5 % (20.0-51.0); MEAN CELL VOLUME 85 fl (80.0-100.0); MEAN CORPUSCULAR HGB CONC 32 g/dl (33.0-37.0); MEAN PLATELET VOLUME 11.7 fl (7.4-10.4); MONO # 0.7 (0.1-0.6); MONO % 10.2 % (1.7-9.3); PLATELET COUNT 160 K/mm3 (130-400); RED BLOOD COUNT 2.57 M/mm3 (4.20-5.60); REDCELL DISTRIBUTION WIDTH-CV 15.9 % (11.5-14.5)
[2020-02-17 09:25] LABS: HEMATOCRIT 21.9 % (42.0-52.0); HEMOGLOBIN 6.9 g/dl (13.5-18.0); MEAN CORPUSCULAR HEMOGLOBIN 27 pg (27.0-31.0)
[2020-02-17 09:38] LABS: CALCIUM 8.3 mg/dL (8.4-10.2); CREATININE, serum 1.28 (0.66-1.25); POTASSIUM 3.8 mmol/L (3.4-5.0)
--- NOTE | 2020-02-17 09:50 | NUR ---
DARIELA Saleh, notified of hemoglobin level.
--- NOTE | 2020-02-17 09:55 | NUR ---
Lying in bed with eyes open. Denies pain or needs. Farr with clear yellow urine in bag.
--- NOTE | 2020-02-17 11:48 | NUR ---
Lying in bed with eyes open watching TV. Denies pain. Heparin drip at 12mL/hr. Farr draining clear yellow urine. Patient denies additional needs.
--- NOTE | 2020-02-17 12:47 | NUR ---
Plan: To return home with his "Genna" Audrey) [phone] who is care support and patients EMR. Patient also wanted to mention his son Evan [phone]. Patient reported having a DPOA, and lists his . They reside in [facility]. Assess: SW met with patient at his bedside. Patient reported that he does utilize a cane, and that his PCP is Dr. Ross, with his upcoming appointment being cancelled because of his hospitalization. Patient reported that he gets his medications from [facility] in [facility]. Patient declined a need for additional services at this time. He indicated that procedure will be done tomorrow. Action: No additional concerns at this time. patient indicated that he would be open to services if recommended by his provider.
--- NOTE | 2020-02-17 17:27 | NUR ---
Sitting up in bed watching TV. Farr continues to drain clear yellow urine. Denies any additional needs at this time.
[2020-02-17 17:42] LABS: HEMATOCRIT 22.6 % (42.0-52.0); HEMOGLOBIN 7.2 g/dl (13.5-18.0)
--- NOTE | 2020-02-17 20:15 | NUR ---
Pt. sitting up in bed at this time. Pt. is A&OX3, assessment complete. INT to lt. hand patent. IV to rt. wrist with Heparin GTT running per orders. Farr catheter with CBI clamped, urine is yellow and clear. Pt. denies pain or other needs, call light within reach.
[2020-02-18 03:49] VITALS: BP 138/71; PULSE 72; TEMP 99.8
[2020-02-18 07:22] VITALS: BP 150/50; PULSE 57; TEMP 98.4
[2020-02-18 07:25] LABS: BASO % 0.6 % (0.0-2.0); EOS # 0.4 (0.0-0.7); EOS % 6.2 % (0-4.0); GRAN # 4.6 (1.4-6.5); GRAN % 70.1 % (42.2-75.2); LYMPH # 0.9 (1.2-3.4); LYMPH % 13.3 % (20.0-51.0); MEAN CELL VOLUME 85 fl (80.0-100.0); MEAN CORPUSCULAR HGB CONC 32 g/dl (33.0-37.0); MEAN PLATELET VOLUME 11.5 fl (7.4-10.4); MONO # 0.6 (0.1-0.6); MONO % 9.2 % (1.7-9.3); PLATELET COUNT 175 K/mm3 (130-400); RED BLOOD COUNT 2.73 M/mm3 (4.20-5.60); REDCELL DISTRIBUTION WIDTH-CV 15.9 % (11.5-14.5)
--- NOTE | 2020-02-18 07:30 | NUR ---
Patient resting in bed at this time. Patient rouses easily and is alert and oriented while awake. Heparin drip per orders, recieved call from research lab assistant with orders to stop heparin drip prior to IVC placement. Farr remains in place, CBI clamped; urine is yellow and clear. Patient denies needs at this time, call light within reach.
[2020-02-18 07:31] LABS: CALCIUM 8.5 mg/dL (8.4-10.2); CREATININE, serum 1.21 (0.66-1.25); HEMATOCRIT 23.2 % (42.0-52.0); HEMOGLOBIN 7.3 g/dl (13.5-18.0); MEAN CORPUSCULAR HEMOGLOBIN 27 pg (27.0-31.0)
[2020-02-18 08:30] VITALS: BP 172/82; PULSE 58
--- NOTE | 2020-02-18 08:31 | NUR ---
SEE MERGE DOCUMENTATION FOR MEDICATION ADMINISTRATION TIMES AND INTRA/POST PROCEDURE SEDATION ASSESSMENTS.
--- NOTE | 2020-02-18 11:30 | NUR ---
Flat time completed. Patient continues to deny pain or needs. Dressing to right femoral is CDI, no swelling or hematoma apparent. Patient denies needs at this time, states he wants to go home right away, assured patient that doctor would be notified. Call light within reach.
[2020-02-18] MEDS ORDERED: ZESTRIL 10MG10 MG PO (13:11)
--- NOTE | 2020-02-18 14:30 | NUR ---
Turbine Inspector met with patient who will discharge today. SW read IM form aloud to patient who verbalized understanding and provided verbal consent as signature. SW placed form in chart and provided copy to patient. KEIKO reviewed PT recommendation for Home Health. KEIKO called patient's , Genna and had her on speakerphone for HH discussion. Patient selected [facility]. KEIKO faxed referral and left a message for Yan at [facility]. KEIKO will continue to follow.
--- NOTE | 2020-02-18 14:30 | NUR ---
Discharge teaching completed. Discussed follow up appointments, barbour care, leg bag teaching and stat lock. Patient denied questions. INT removed from right wrist and left forearm, catheters intact, hemostasis achieved. Patient denied further needs. Social work states that patient will have home health. Patient escorted to Patient entrance, where he entered a private vehicle.
--- NOTE | 2020-02-18 15:04 | NUR ---
Rosy from [facility] reports they can take the patient for [facility].
== END 2020-02-18 14:50 | disposition home or self-care (01) | DRG 669 ==
LOC: SURG 07:40
PROVIDERS: Physician Assistant; Urology; ADMIT Student in an Organized Health Care Education/Training Program
PROC: 0TCB8ZZ Extirpation of Matter from Bladder, Via Natural or Artificial Opening Endoscopic (ICD-10-PCS; 2020-02-15)
PROC: 0T5B8ZZ Destruction of Bladder, Via Natural or Artificial Opening Endoscopic (ICD-10-PCS; principal; 2020-02-15 11:15)
PROC: 06H03DZ Insertion of Intraluminal Device into Inferior Vena Cava, Percutaneous Approach (ICD-10-PCS; 2020-02-18)
DX: R31.0 Gross hematuria (principal); D62 Acute posthemorrhagic anemia; D68.32 Hemorrhagic disorder due to extrinsic circulating anticoagulants; I82.409 Acute embolism and thrombosis of unspecified deep veins of unspecified lower extremity; E11.22 Type 2 diabetes mellitus with diabetic chronic kidney disease; I12.9 Hypertensive chronic kidney disease with stage 1 through stage 4 chronic kidney disease, or unspecified chronic kidney disease; E78.5 Hyperlipidemia, unspecified; N18.9 Chronic kidney disease, unspecified; N40.0 Benign prostatic hyperplasia without lower urinary tract symptoms; T45.515A Adverse effect of anticoagulants, initial encounter; Z85.46 Personal history of malignant neoplasm of prostate; Z87.891 Personal history of nicotine dependence; Z79.84 Long term (current) use of oral hypoglycemic drugs
CPT/HCPCS: 99222-AI; 99231-AI; 99232-AI; 99239; C1769; J0690; J1100; J1644; J2250; J2405; J2704; J3010; J7030; J7120; P9016; Q9967